=== PATIENT | male | born 1985 | race Two or more races ===

== ENCOUNTER → 2021-02-11 | Outpatient (CLI) | payer OTHER | END | disposition home or self-care (01) | LOC: PPH VACUNA | DX: Z23 Encounter for immunization (principal) ==

== ENCOUNTER 2022-01-11 10:25 | Outpatient (CLI) | payer OTHER | END 2022-01-11 10:35 | disposition home or self-care (01) | LOC: RAD 10:25 | PROVIDERS: ATTEND Physical Medicine & Rehabilitation | DX: M54.2 Cervicalgia (principal) ==